=== PATIENT | male | born 1950 | race Hispanic/Latino ===

== ENCOUNTER 2021-02-22 08:10 | Emergency (ER) | payer OTHER ==
[2021-02-22 08:34] LABS: Absolute Lymphocytes (CBC) 2.7 K/uL (0.7-4.9); Basophils % 0.6 % (0-1.3); Hematocrit 41.8 % (39.6-49.0); Lymphocytes % 30.1 % (15.3-44.8); MPV 9.4 fL (7.6-11.3); RBC Red Blood Cell Count 4.62 M/uL (4.33-5.43)
[2021-02-22] MEDS ORDERED: NA CHLORIDE 0.9% 1,000 ML ONE (08:35)
[2021-02-22] MEDS ORDERED: MECLIZINE HCL 12.5 MG TAB ONE (08:35)
[2021-02-22 08:39] LABS: Protime INR 0.97
--- NOTE | 2021-02-22 09:01 | RAD REPORT ---
EXAM DESCRIPTION: MRI - Brain Wo Cont - 02/22/2021 8:52 am CLINICAL HISTORY: Vertigo COMPARISON: Head CT February 22, 2021 TECHNIQUE: Axial, sagittal, and coronal magnetic resonance images of the brain were obtained. FINDINGS: Mild signal within periventricular, deep and subcortical white matter probably ischemic ch anges secondary to small vessel disease Diffusion-weighted/ADC mapping does not reveal evidence of acute infarction. The ventricles are normal caliber. An extra-axial fluid collection is not noted. Fluid within the sinuses/mastoids is not seen IMPRESSION: No acute intracranial abnormality noted
--- NOTE | 2021-02-22 09:02 | RAD REPORT ---
EXAM DESCRIPTION: CT - Head Brain Wo Cont - 02/22/2021 8:32 am CLINICAL HISTORY: Dizziness COMPARISON: None TECHNIQUE: Computed axial tomography of the head was obtained. IV contrast was not requested. All CT scans are performed using dose optimization technique as appropriate and may include automated exposure control or mA/KV adjustment according to patient size. FINDINGS: An intracranial bleed is not seen . The ventricles are normal in caliber. No extra-axial fluid collection is noted. Fluid within the sinuses/ mastoids is not seen. IMPRESSION: No acute intracranial abnormality is seen.
[2021-02-22] MEDS ORDERED: ONDANSETRON 4 MG/2 ML VIAL ONE (10:13)
[2021-02-22 11:00] LABS: BUN Blood Urea Nitrogen 22 mg/dL (7-18); Bicarbonate 21 mmol/L (21-32); Glucose Level 198 mg/dL (74-106); Sodium Level 137 mmol/L (136-145); Troponin (Emerg Dept Use Only) < 0.02 ng/mL (0.0-0.045)
--- NOTE | 2021-02-22 11:20 | ER ---
Nurse's Notes [facility] Name: Torsten Cochran Age: 70 yrs Sex: Male : 1950 Arrival Date: 02/22/2021 Time: 08:15 Bed 13 Private MD: Diagnosis: Other peripheral vertigo;Dizziness and giddiness Presentation: 02/22 08:18 Chief complaint: EMS states: "pt reported waking up this am feeling dizzy and nauseous jd3 with reporting the room is spinning. 4 mg of zofran given and 20 G IV started to the right forearm. normal sinus on the 12 lead. pt reported symptoms were resolving by the time we arrived to the ER.". Coronavirus screen: At this time, the client does not indicate any symptoms associated with coronavirus-19. Ebola Screen: Patient negative for fever greater than or equal to 101.5 degrees Fahrenheit, and additional compatible Ebola Virus Disease symptoms. Initial Sepsis Screen: Does the patient meet any 2 criteria? No. Patient's initial sepsis screen is negative. Does the patient have a suspected source of infection? No. Patient's initial sepsis screen is negative. Risk Assessment: Do you want to hurt yourself or someone else? Patient reports no desire to harm self or others. Onset of symptoms was February 22, 2021. 08:18 Method Of Arrival: EMS: [facility] jd3 08:18 Acuity: JOSHUA 3 jd3 Historical: - Allergies: 08:23 Codeine; jd3 - Home Meds: 08:23 Aspirin Oral [Active]; escitalopram oxalate oral [Active]; Metformin Oral [Active]; jd3 amlodipine oral [Active]; Hydrochlorothiazide Oral [Active]; doxazosin oral [Active]; losartan oral [Active]; pioglitazone oral [Active]; atorvastatin oral [Active]; - PMHx: 08:23 Diabetes mellitus; Hypertensive disorder; high cholesteral; jd3 - PSHx: 08:23 heart stents; jd3 - Immunization history:: Adult Immunizations up to date, Client reports receiving the 2nd dose of the Covid vaccine, Flu vaccine is not up to date. - Social history:: Smoking status: Patient/guardian denies using tobacco, but has a distant history of tobacco abuse. - Family history:: not pertinent. - Hospitalizations: : No recent hospitalization is reported. Screenin:05 Abuse screen: Denies threats or abuse. Nutritional screening: No deficits noted. jd3 Tuberculosis screening: No symptoms or risk factors identified. Fall Risk Ambulatory Aid- None/Bed Rest/Nurse Assist (0 pts). Gait- Normal/Bed Rest/Wheelchair (0 pts) Mental Status- Oriented to own ability (0 pts). Total Price Fall Scale indicates No Risk (0-24 pts). Assessment: 08:30 General: Appears in no apparent distress. comfortable, Behavior is calm, cooperative, jd3 appropriate for age. Pain: Denies pain. Neuro: Level of Consciousness is awake, alert, obeys commands, Oriented to person, place, time, situation, Reports dizziness. Cardiovascular: Denies chest pain, Capillary refill < 3 seconds Patient's skin is warm and dry. Rhythm is regular. Respiratory: Airway is patent Respiratory effort is even, unlabored, Respiratory pattern is regular, symmetrical, Denies cough, shortness of breath. GI: No signs and/or symptoms were reported involving the gastrointestinal system. : No signs and/or symptoms were reported regarding the genitourinary system. EENT: No signs and/or symptoms were reported regarding the EENT system. Derm: Skin is intact, Skin is dry, Skin is normal, Skin temperature is warm. Musculoskeletal: No signs and/or symptoms reported regarding the musculoskeletal system. 09:34 Reassessment: Patient appears in no apparent distress at this time. No changes from jd3 previously documented assessment. Patient and/or family updated on plan of care and expected duration. Pain level reassessed. Patient is alert, oriented x 3, equal unlabored respirations, skin warm/dry/pink. 11:07 Reassessment: Patient appears in no apparent distress at this time. No changes from jd3 previously documented assessment. Patient and/or family updated on plan of care and expected duration. Pain level reassessed. Patient is alert, oriented x 3, equal unlabored respirations, skin warm/dry/pink. Vital Signs: 08:27 BP 154 / 78; Pulse 78; Resp 20 S; Temp 98.6(TE); Pulse Ox 100% on R/A; Weight 121.56 kg jd3 (R); Height 6 ft. 1 in. (185.42 cm) (R); Pain 0/10; 09:34 BP 158 / 67; Pulse 55; Resp 17 S; Pulse Ox 98% on R/A; jd3 11:07 BP 180 / 79; Pulse 59; Resp 17 S; Pulse Ox 99% on R/A; jd3 08:27 Body Mass Index 35.36 (121.56 kg, 185.42 cm) jd3 ED Course: 08:15 Patient arrived in ED. [facility] 08:18 Tesfaye Bunch MD is Attending Physician. rn 08:18 Erickson Dey RN is Primary Nurse. jd3 08:23 Triage completed. jd3 08:27 Arm band placed on. EKG completed in triage. Results shown to MD. jd3 08:29 CBC with Diff Sent. 5 08:29 Protime (+inr) Sent. 5 08:29 Ptt, Activated Sent. 5 08:29 Troponin (emerg Dept Use Only) Sent. 5 08:29 Basic Metabolic Panel Sent. 5 08:29 Initial lab(s) drawn, by ED staff, sent to lab. EKG done, by ED staff, reviewed by [facility] Tesfaye Bunch MD. Maintain EMS IV. Dressing intact. Site clean \\T\\ dry. 08:30 Patient has correct armband on for positive identification. Bed in low position. Call [facility] light in reach. Side rails up X2. Warm blanket given. secured entrance monitor on. Pulse ox on. NIBP on. 08:31 CT Head Brain wo Cont In Process Unspecified. EDMS 08:39 Brain Wo Cont MRI In Process Unspecified. EDMS 11:19 Johnathan Hernandez MD is Referral Physician. rn 12:32 No provider procedures requiring assistance completed. IV discontinued, intact, jd3 bleeding controlled, No redness/swelling at site. Pressure dressing applied. Administered Medications: 09:02 Drug: NS 0.9% 1000 ml Route: IV; Rate: 1000 ml; Site: right forearm; jd3 10:00 Follow up: Response: No adverse reaction; IV Status: Completed infusion jd3 09:03 Drug: Meclizine 50 mg Route: PO; jd3 12:32 Follow up: Response: No adverse reaction jd3 10:18 Drug: Zofran (Ondansetron) 4 mg Route: IVP; Site: right forearm; jd3 11:00 Follow up: Response: No adverse reaction jd3 11:49 Drug: Valium (diazepam) 2 mg Route: PO; jd3 12:32 Follow up: Response: No adverse reaction jd3 Outcome: 11:19 Discharge ordered by . rn 12:29 Patient left the ED. 12:33 Discharged to home via wheelchair, with family. jd3 12:33 Condition: stable 12:33 Discharge instructions given to patient, family, Instructed on discharge instructions, follow up and referral plans. medication usage, Demonstrated understanding of instructions, follow-up care, medications, Prescriptions given X 2. Signatures: Dispatcher [employer] EDTesfaye Morales MD MD rn Smirch, Shelby, RN RN ss Martinez, Maria [facility] Erickson Dey RN RN jelise
--- NOTE | 2021-02-22 11:20 | EDPHYS ---
Physician Documentation [facility] Name: Torsten Cochran Age: 70 yrs Sex: Male : 1950 Arrival Date: 02/22/2021 Time: 08:15 Bed 13 Private MD: ED Physician Tesfaye Bunch HPI: 02/22 08:23 This 70 yrs old Male presents to ER via Unassigned with complaints of rn dizziness. 08:23 The patient presents with dizziness, sense of spinning. Onset: The symptoms/episode rn began/occurred this morning. Modifying factors: The symptoms are alleviated by nothing, the symptoms are aggravated by movement of head. Associated signs and symptoms: Pertinent positives: nausea, vomiting, Pertinent negatives: abdominal pain, chest pain, confusion, diaphoresis, focal weakness, head injury, headache, seizure, shortness of breath. Severity of symptoms: At their worst the symptoms were moderate in the emergency department the symptoms have improved. The patient has experienced similar episodes in the past. The patient has not recently seen a physician. Patient reports woke up this morning feeling dizzy, feeling like room was spinning, associated with nausea and vomiting. Reports try to get out of bed and felt like he could not walk. EMS reports high blood pressure that has now improved without intervention. Was given Zofran 4 mg IV by EMS with improvement of symptoms. Patient currently reports does not feel dizzy. States felt fine when went to bed last night. States has been feeling dizzy spells over the last week and 2 days ago felt similar to today but today was worse. No history of vertigo or stroke. No headache. No vision changes. No chest pain or abdominal pain.. Historical: - Allergies: 08:23 Codeine; jd3 - Home Meds: 08:23 Aspirin Oral [Active]; escitalopram oxalate oral [Active]; Metformin Oral [Active]; jd3 amlodipine oral [Active]; Hydrochlorothiazide Oral [Active]; doxazosin oral [Active]; losartan oral [Active]; pioglitazone oral [Active]; atorvastatin oral [Active]; - PMHx: 08:23 Diabetes mellitus; Hypertensive disorder; high cholesteral; jd3 - PSHx: 08: heart stents; jd3 - Immunization history:: Adult Immunizations up to date, Client reports receiving the 2nd dose of the Covid vaccine, Flu vaccine is not up to date. - Social history:: Smoking status: Patient/guardian denies using tobacco, but has a distant history of tobacco abuse. - Family history:: not pertinent. - Hospitalizations: : No recent hospitalization is reported. ROS: 08:23 Constitutional: Negative for fever, chills, and weight loss, Eyes: Negative for injury, rn pain, redness, and discharge, ENT: Negative for injury, pain, and discharge, Neck: Negative for injury, pain, and swelling, Cardiovascular: Negative for chest pain, palpitations, and edema, Respiratory: Negative for shortness of breath, cough, wheezing, and pleuritic chest pain, Abdomen/GI: Negative for abdominal pain, diarrhea, and constipation, Back: Negative for injury and pain, : Negative for injury, bleeding, discharge, and swelling, MS/Extremity: Negative for injury and deformity, Skin: Negative for injury, rash, and discoloration, Neuro: Negative for headache, weakness, numbness, tingling, and seizure. Exam: 08:23 Constitutional: This is a well developed, well nourished patient who is awake, alert, rn and in no acute distress. Head/Face: Normocephalic, atraumatic. Eyes: Periorbital areas with no swelling, redness, or edema. Neck: Trachea midline, no masses palpated. No Meningismus. Cardiovascular: Regular rate and rhythm. No pulse deficits. Respiratory: No increased work of breathing, no retractions or nasal flaring. Abdomen/GI: Soft, non-tender Skin: Warm, dry MS/ Extremity: Pulses equal, no cyanosis. Neuro: Awake and alert, GCS 15, oriented to person, place, time, and situation. Cranial nerves II-XII grossly intact. Motor strength 5/5 in all extremities. Sensory grossly intact. Cerebellar exam normal. Vital Signs: 08:27 BP 154 / 78; Pulse 78; Resp 20 S; Temp 98.6(TE); Pulse Ox 100% on R/A; Weight 121.56 kg jd3 (R); Height 6 ft. 1 in. (185.42 cm) (R); Pain 0/10; 09:34 BP 158 / 67; Pulse 55; Resp 17 S; Pulse Ox 98% on R/A; jd3 11:07 BP 180 / 79; Pulse 59; Resp 17 S; Pulse Ox 99% on R/A; jd3 08:27 Body Mass Index 35.36 (121.56 kg, 185.42 cm) jd3 MDM: 08:18 Patient medically screened. rn 11:17 Differential diagnosis: cardiac arrhythmia, CVA, generalized weakness, hypovolemia, rn idiopathic dizziness, near-syncope, TIA, vertigo. Data reviewed: vital signs, nurses notes, lab test result(s), EKG, radiologic studies, CT scan, MRI, and as a result, I will discharge patient. Counseling: I had a detailed discussion with the patient and/or guardian regarding: the historical points, exam findings, and any diagnostic results supporting the discharge/admit diagnosis, lab results, radiology results, the need for outpatient follow up, to return to the emergency department if symptoms worsen or persist or if there are any questions or concerns that arise at home. Response to treatment: the patient's symptoms have mildly improved after treatment, and as a result, I will discharge patient. Special discussion: I discussed with the patient/guardian in detail that at this point there is no indication for admission to the hospital. It is understood, however, that if the symptoms persist or worsen the patient needs to return immediately for re-evaluation. Based on the history and exam findings, there is no indication for further emergent testing or inpatient evaluation. I discussed with the patient/guardian the need to see the neurologist for further evaluation of the symptoms. ED course: Patient improved. CT head negative for acute findings. MRI head negative for acute stroke. Patient had 1 other episode of dizziness here, did not correspond to arrhythmia on monitor or hypotensive episode. Most likely given absence of findings and imaging and blood work, patient with vertigo. Will DC home with meclizine and neurology follow-up.. 02/22 08:19 Order name: Basic Metabolic Panel; Complete Time: 11:02 rn 02/22 08:19 Order name: CBC with Diff; Complete Time: : rn 02/22 08:19 Order name: Protime (+inr); Complete Time: 09: rn 02/22 08:19 Order name: Ptt, Activated; Complete Time: 09: rn 02/22 08:19 Order name: Troponin (emerg Dept Use Only); Complete Time: 11:02 rn 02/22 08:19 Order name: CT Head Brain wo Cont; Complete Time: 09:03 rn 02/22 08:19 Order name: EKG; Complete Time: 08: rn 02/22 08:19 Order name: Cardiac monitoring; Complete Time: rn 02/22 08:19 Order name: EKG - Nurse/Tech; Complete Time: 08: rn 02/22 08:19 Order name: Brain Wo Cont MRI; Complete Time: 09: rn 02/22 08:19 Order name: IV Saline Lock; Complete Time: rn 02/22 08:19 Order name: Labs collected and sent; Complete Time: : rn 02/22 08:19 Order name: O2 Per Protocol; Complete Time: : rn 02/22 08:19 Order name: O2 Sat Monitoring; Complete Time: rn Administered Medications: 09:02 Drug: NS 0.9% 1000 ml Route: IV; Rate: 1000 ml; Site: right forearm; jd3 10:00 Follow up: Response: No adverse reaction; IV Status: Completed infusion jd3 09:03 Drug: Meclizine 50 mg Route: PO; jd3 12:32 Follow up: Response: No adverse reaction jd3 10:18 Drug: Zofran (Ondansetron) 4 mg Route: IVP; Site: right forearm; jd3 11:00 Follow up: Response: No adverse reaction jd3 11:49 Drug: Valium (diazepam) 2 mg Route: PO; jd3 12:32 Follow up: Response: No adverse reaction jd3 Disposition Summary: 02/22/21 11:19 Discharge Ordered Location: Home rn Problem: new rn Symptoms: have improved rn Condition: Stable rn Diagnosis - Other peripheral vertigo rn - Dizziness and giddiness rn Followup: rn - With: Jhonathan Hernandez MD - When: As needed - Reason: Recheck today's complaints, Re-evaluation by your physician Discharge Instructions: - Discharge Summary Sheet rn - Dizziness rn - Vertigo rn Forms: - Medication Reconciliation Form rn - Thank You Letter rn - Antibiotic field kiln burner - Prescription Opioid Use rn Prescriptions: - ondansetron 4 mg Oral tablet,disintegrating - take 1 tablet by ORAL route every 8-10 hours As needed; 15 tablet; Refills: 0, rn Product Selection Permitted - Meclizine 25 mg Oral Tablet - take 1 tablet by ORAL route every 8 hours As needed; 30 tablet; Refills: 0, rn Product Selection Permitted Signatures: Dispatcher [employer] Tesfaye Harris MD MD rn Erickson Dey RN RN jd3
[2021-02-22] MEDS ORDERED: DIAZEPAM 2 MG TABLET PO ONE (12:00)
[2021-02-22 12:40] VITALS: TEMP 98.6
[2021-02-22 12:43] VITALS: BP 180/79; O2SAT 99
--- NOTE | 2021-02-23 12:29 | EKG ---
Test Date: 2021-02-22 Test Time: 08:25:22 [employer] Wood Stair Builder: MADINA MEASUREMENT RESULTS: Intervals: Rate: 63 UT: 156 QRSD: 90 QT: 424 QTc: 433 [place]: P: 21 UT: 156 QRS: 3 T: 51 INTERPRETIVE STATEMENTS: Sinus rhythm with occasional premature ventricular complexes Otherwise normal ECG No previous ECG available for comparison Electronically Signed On 02-23-21 12:25:57 [employer]ALITY ASS[employer]ANCE ASSOCIATE by Panda Strong
== END 2021-02-22 12:29 | disposition home or self-care (01) ==
LOC: ER 08:10
DX: H81.399 Other peripheral vertigo, unspecified ear (principal); I10 Essential (primary) hypertension; E11.9 Type 2 diabetes mellitus without complications; Z95.818 Presence of other cardiac implants and grafts; Z79.82 Long term (current) use of aspirin; Z88.5 Allergy status to narcotic agent
CPT/HCPCS: 96361; 93005; 85025; 80048; 36415; 85610; 85730; 84484; 70450; 70551; 96374; 99284; J7030; J2405; J8597

== ENCOUNTER 2021-04-01 04:29 | Emergency (ER) | payer OTHER ==
--- OUTSIDE RECORDS SUMMARY | 2021-04-01 04:34 | XMS REPORT | Continuity of Care Document ---
:1950 Author Organization [facility] t Address [address] [place] [address] Care Team Providers Name Role Phone Domi Rios DO Primary Care Physician Jose GUERRIER Attending Clinician Payers Payer Name Policy Type Policy Number Effective Date Expiration Date S ource Problems Condition Condition Condition Status Onset Resolution Last Treating Co mments Source Name Details Category Date Date Treatment Clinician Date Redundant Redundant Disease Active 2020-03 Overview: [facility] prepuce prepuce 2-20 Formattin ity o f and and 00:00: g of this [place] phimosis phimosis 00 note Medica l might be Branch different from the original. Added automatic ally from request for surgery [id number] [place] Bal[place] Disease Active 2020-03 Overview : [facility] hitis hitis 2-20 Formattin ity of 00:00: g of this [place] 00 note Medical might be Branch different from the original. Added automatic ally from request for surgery [id number] Allergies, Adverse Reactions, Alerts Allergy Allergy Status Severity Reaction(s) Onset Inactive Treating Comm ents Source Name Type Date Date Clinician Codeine Propensi Active Nausea Univers ty to and/or 1-04 ity of adverse Vomiting 00:00: [place] reaction 00 Medical s Branch Social History Social Habit Start Date Stop Date Quantity Comments Source Exposure to Not sure [facility] SARS-CoV-2 (event) Medica l Branch Sex Assigned [birth year] [facility] 00:00:00 00:00:00 Medical Branch Smoking Status Start Date Stop Date Source Unknown if ever smoked [facility] Medical [place] Medications Ordered Filled Start Stop Current Ordering Indication Dosage Frequency Signature Comments Components Source Medication Medication Date Date Medication? Clinician (SIG) Name Name atorharrisontati 2020-03 Yes 20mg Take 20 mg Univers n 20 mg -29 by mouth. ity of tablet 00:00: [place] 00 Medical Branch atorvastati 2020-03 Yes 20mg Take 20 mg Univers n 20 mg 29 by mouth. ity of tablet 00:00: [place] 00 Medical Branch escitalopra 2020-03- Yes 10mg Take 10 mg Univers m oxalate 03-31 by mouth. ity of 10 mg 00:00: 05:59 [place] tablet 00 :00 Medical Branch escitalopra 2020-03- Yes 10mg Take 10 mg Univers m oxalate 03-31 by mouth. ity of 10 mg 00:00: 05:59 [place] tablet 00 :00 Medical Branch amLODIPine 2020-03 Yes 1{tbl} Take 1 Uni vers 10 mg 1-06 tablet by ity of tablet 00:00: mouth [place] 00 daily. Medical Branch hydroCHLORO 2020-03 Yes 1{tbl} Take 1 Un charline thiazide 25 1-06 tablet by ity of mg tablet 00:00: mouth [place] 00 daily. Medical Branch metFORMIN 2020-03 Yes 1{tbl} Take 1 Univ ers 1,000 mg 1-06 tablet by ity of tablet 00:00: mouth 2 (two) Medical times Branch daily with meals. amLODIPine 2020-03 Yes 1{tbl} Take 1 Uni vers 10 mg 1-06 tablet by ity of tablet 00:00: mouth [place] 00 daily. Medical Branch hydroCHLORO 2020-03 Yes 1{tbl} Take 1 Un charline thiazide 25 1-06 tablet by ity of mg tablet 00:00: mouth [place] 00 daily. Medical Branch metFORMIN 2020-03 Yes 1{tbl} Take 1 Univ ers 1,000 mg 1-06 tablet by ity of tablet 00:00: mouth 2 00 (two) Medical times Branch daily with meals. doxazosin 4 2021- No 4mg Take 4 mg Univers mg tablet 07-17 by mouth. ity of 00:00: 04:59 [place] 00 :00 Medical Branch doxazosin 4 2021- No 4mg Take 4 mg Univers mg tablet 07-17 by mouth. ity of 00:00: 04:59 [place] 00 :00 Medical Branch lactulose Yes 30mL Take 30 mL Un charline 10 gram/15 06-12 by mouth. ity of mL solution 00:00: 00 Medical Branch lactulose Yes 30mL Take 30 mL Un charline 10 gram/15 06-12 by mouth. ity of mL solution 00:00: 00 Medical Branch losartan 50 2020-2021- No 50mg Take 50 mg Univers mg tablet 06-12 by mouth. ity of 00:00: 04:59 [place] 00 :00 [facility] Branch metoprolol 2021- No 25mg Take 25 mg Univers succinate 06-12 by mouth. ity of XL 25 mg 24 00:00: 04:59 [place] hr tablet 00 :00 [facility] Branch losartan 50 2021- No 50mg Take 50 mg Univers mg tablet 06-12 by mouth. ity of 00:00: 04:59 [place] 00 :00 [facility] Branch metoprolol 2021- No 25mg Take 25 mg Univers succinate 06-12 by mouth. ity of XL 25 mg 24 00:00: 04:59 [place] hr tablet 00 :00 [facility] Procedures This patient has no known procedures. Encounters Start End Encounter Admission Attending Care Care Encounter Source Date/Time Date/Time Type Type Clinicians Facility Department ID 2021-03-19 2021-03-19 Telephone Jose [facility] [id number] Univers 00:00:00 00:00:00 [facility] [id number] it y of [place] [id number] [place] - [id number] Med ical [facility] 204 Branch 2021-03-17 2021-03-17 Telephone Jose [facility] [id number] Univers 00:00:00 00:00:00 [facility] [id number] i [place] of [id number] [place] [id number] [place] [facility] 204 Branch BUILDING Results This patient has no known results.
[2021-04-01] MEDS ORDERED: LORazepam 2 MG/ML VIAL ONE (05:38)
[2021-04-01 05:53] LABS: Absolute Lymphocytes (CBC) 1.8 K/uL (0.7-4.9); Hematocrit 42.1 % (39.6-49.0); Lymphocytes % 26.3 % (15.3-44.8); MPV 10.1 fL (7.6-11.3); RBC Red Blood Cell Count 4.66 M/uL (4.33-5.43)
[2021-04-01 06:09] LABS: Potassium 4.1 mmol/L (3.5-5.1); Troponin High Sensitivity 11.6 pg/mL (<58.9)
--- NOTE | 2021-04-01 07:24 | RAD REPORT ---
EXAM DESCRIPTION: CT - Chest For Pe Angio - 04/01/2021 6:55 am CLINICAL HISTORY: DYSPNEA COMPARISON: No comparisons FINDINGS: Chest Wall: No suspicious thyroid nodules or pathologic lymphadenopathy. Lungs: No acute abnormality. Limited by motion. Pleura: No significant effusions or pneumothorax. Mediastinum/nicol: No pathologic lymphadenopathy. Pulmonary arteries/Aorta: No filling defect identified though limited by motion. The segmental and gonsales bsegmental pulmonary arteries are not well evaluated. No aortic aneurysm. Heart: No significant pericardial effusion. Normal heart size. Aortic valve calcifications. Multi-ves mallika coronary artery disease. Upper abdomen: No acute abnormality. Bones: No acute abnormality. All CT scans are performed using dose optimization technique as appropriate and may include automated exposure control or mA/KV adjustment according to patient size. IMPRESSION: Evaluation for pulmonary embolism is limited by motion. No central pulmonary embolus liyah ntified. The segmental and subsegmental pulmonary arteries cannot be evaluated. No alternate process identified. Aortic valvular and coronary artery calcifications are present.
--- NOTE | 2021-04-01 07:44 | RAD REPORT ---
EXAM DESCRIPTION: RAD - Chest Single View - 04/01/2021 5:46 am CLINICAL HISTORY: DYSPNEA COMPARISON: Chest For Pe Angio dated 04/01/2021 FINDINGS: Lines: None. Lungs: No evidence of edema or pneumonia. Pleural: No significant pleural effusions or pneumothorax. Cardiac: The heart size is within normal limits. Bones: No acute fractures. Other: IMPRESSION: No acute cardiopulmonary disease.
--- NOTE | 2021-04-01 10:15 | ER ---
Nurse's Notes [facility] Name: Torsten Cochran Age: 70 yrs Sex: Male : 1950 Arrival Date: 04/01/2021 Time: 04:41 Bed 17 Private MD: Diagnosis: Dyspnea Presentation: 04/01 04:57 Chief complaint: Patient states: he was sleeping tonight and states he stopped as6 breathing in his sleep, woke up and was having difficulty catching his breath and felt like he was going to vomit. Pt tried to go back to sleep but this kept happening. pt has hx of anxiety and sleep apnea, cpap machine was recalled so does not wear cpap at night. covid positive on 03/16/21. Coronavirus screen: Vaccine status: Patient reports receiving the 2nd dose of the covid vaccine. Ebola Screen: No symptoms or risks identified at this time. Initial Sepsis Screen: Does the patient meet any 2 criteria? No. Patient's initial sepsis screen is negative. Does the patient have a suspected source of infection? No. Patient's initial sepsis screen is negative. Risk Assessment: Do you want to hurt yourself or someone else? Patient reports no desire to harm self or others. Onset of symptoms was April 01, 2021. 04:57 Method Of Arrival: Ambulatory as6 04:57 Acuity: JOSHUA 3 as6 Triage Assessment: 05:00 General: Appears in no apparent distress. Behavior is anxious. Pain: Denies pain. as6 Neuro: No deficits noted. Level of Consciousness is awake, alert, Oriented to person, place, time, situation. Cardiovascular: No deficits noted. Capillary refill < 3 seconds Patient's skin is warm and dry. Respiratory: Reports shortness of breath Airway is patent Trachea midline Respiratory effort is even, labored, Onset: The symptoms/episode began/occurred this morning, the patient has mild shortness of breath. Historical: - Allergies: 04:59 Codeine; as6 - Home Meds: 06:01 amlodipine oral [Active]; Aspirin Oral [Active]; atorvastatin Oral [Active]; doxazosin carloz Oral [Active]; escitalopram oxalate Oral [Active]; Hydrochlorothiazide Oral [Active]; losartan Oral [Active]; Metformin Oral [Active]; pioglitazone Oral [Active]; - PMHx: 04:59 diabetes mellitus; high cholesteral; Hypertensive disorder; Sleep apnea; Anxiety; as6 - PSHx: 04:59 Heart Stents; as6 - Immunization history:: Client reports receiving the 2nd dose of the Covid vaccine. - Social history:: Smoking status: unknown. - Family history:: not pertinent. - Hospitalizations: : No recent hospitalization is reported. Screenin:15 Abuse screen: Denies threats or abuse. Denies injuries from another. Nutritional carloz screening: No deficits noted. Tuberculosis screening: No symptoms or risk factors identified. Fall Risk None identified. Assessment: 05:15 Reassessment: Patient appears in no apparent distress at this time. Patient denies pain carloz at this time. General: Appears in no apparent distress. Behavior is calm, cooperative, Pt reports have "anxiety attacks", but currently, is very calm. . Cardiovascular: No deficits noted. Respiratory: No deficits noted. Breath sounds are clear. 05:42 Cardiovascular: Rhythm is. carloz 06:02 General: The lab called to say that the pt's Ddimer was 931. carloz 06:48 General: The pt just returned from [place]. carloz 08:57 Reassessment: Pt is aaox4, reports improved breathing, able to ambulate to restroom eo2 with steady gait. Pt denies pain, appears in NAD. Will continue to monitor. 10:17 Reassessment: pt noted with pulse 45 bpm while sleeping, pt denies CP, appears in NAD, eo2 Rey CHAU made aware. Vital Signs: 04:57 BP 181 / 66; Pulse 72; Resp 22; Temp 98.0(O); Pulse Ox 100% on R/A; Weight 122.47 kg; as6 Height 6 ft. (182.88 cm); 05:15 BP 162 / 82; Pulse 71; Resp 18; Temp 98.5; Pulse Ox 100% on R/A; carloz 06:00 BP 150 / 68; Pulse 78; Resp 16; Pulse Ox 99% on R/A; carloz 08:56 BP 139 / 62; Pulse 59; Resp 15; Pulse Ox 98% ; Pain 0/10; eo2 09:30 BP 161 / 65; Pulse 56; Resp 17; Pulse Ox 100% ; Pain 0/10; eo2 10:26 BP 147 / 68; Pulse 54; Resp 17; Pulse Ox 100% ; Pain 0/10; eo2 04:57 Body Mass Index 36.62 (122.47 kg, 182.88 cm) as6 ED Course: 04:41 Patient arrived in ED. wm 04:59 Triage completed. as6 05:01 Tesfaye Bunch MD is Attending Physician. rn 05:01 Arm band placed on right wrist. as6 05:15 Jaimie Otero, RN is Primary Nurse. carloz 05:15 Patient has correct armband on for positive identification. Bed in low position. Call carloz light in reach. Side rails up X 1. Pulse ox on. NIBP on. Verbal reassurance given. 05:15 No provider procedures requiring assistance completed. carloz 05:30 CBC with Diff Sent. carloz 05:30 Basic Metabolic Panel Sent. carloz 05:30 BNP Sent. carloz 05:30 Troponin High Sensitivity Sent. carloz 05:30 D-Dimer Sent. carloz 05:47 XRAY CXR (1 view) In Process Unspecified. EDMS 05:59 Basic Metabolic Panel Sent. carloz 05:59 BNP Sent. carloz 06:00 Troponin High Sensitivity Sent. carloz 06:00 D-Dimer Sent. carloz 06:44 Appears to be sleeping. Awaiting CT Scan. carloz 06:55 CT Chest For PE Angio In Process Unspecified. EDMS 07:09 Rey Pineda PA is PHCP. [facility] 09:41 Troponin HS Sent. eo2 10:30 IV discontinued, intact. eo2 Administered Medications: 05:42 Drug: Ativan (LORazepam) 0.5 mg Route: IVP; Site: right forearm; carloz 05:59 Follow up: Response: Anxiety decreased carloz Outcome: 06:00 Condition: stable carloz 10:14 Discharge ordered by . jmaustin 10:30 Discharged to home ambulatory. eo2 10:30 Condition: stable 10:30 Discharge instructions given to patient, Instructed on discharge instructions, follow up and referral plans. Demonstrated understanding of instructions, follow-up care. 10:44 Patient left the ED. eo2 Signatures: Dispatcher [employer] EDMS Rey Pineda PA PA jmm Nieto, Roman, MD MD rn Marsh, Wendy Torres Langley RN RN as6 Jaimie Otero RN RN bo Owoade, Eunice, RN RN eo2
--- NOTE | 2021-04-01 10:15 | EDPHYS ---
Physician Documentation [facility] Name: Torsten Cochran Age: 70 yrs Sex: Male : 1950 Arrival Date: 04/01/2021 Time: 04:41 Bed 17 Private MD: ED Physician Tesfaye Bunch HPI: 04/01 05:31 This 70 yrs old Male presents to ER via Ambulatory with complaints of rn Shortness Of Breath, Anxiety. 05:31 The patient has shortness of breath that woke him/her from sleep. Onset: The rn symptoms/episode began/occurred just prior to arrival. Duration: The symptoms are continuous. The patient's shortness of breath is aggravated by nothing, is alleviated by nothing. Associated signs and symptoms: Pertinent negatives: chest pain, diaphoresis, fever, hemoptysis, loss of consciousness, vomiting. Severity of symptoms: At their worst the symptoms were moderate in the emergency department the symptoms have improved. The patient has experienced similar episodes in the past. The patient has not recently seen a physician. Patient reports woke up from sleep suddenly and felt like he could not breathe. Feels very similar to previous anxiety episodes. Patient also with sleep apnea and has not been using his CPAP machine due to recall. Reports had COVID 2 weeks ago but felt like got better and cough improved. No trauma. No hemoptysis. No chest pain or abdominal pain. No focal neurological deficit. Patient states at first it was really bad and took him about an hour to calm down and try to control his anxiety, has not gone completely away but much better.. Historical: - Allergies: 04:59 Codeine; as6 - Home Meds: 06:01 amlodipine oral [Active]; Aspirin Oral [Active]; atorvastatin Oral [Active]; doxazosin carloz Oral [Active]; escitalopram oxalate Oral [Active]; Hydrochlorothiazide Oral [Active]; losartan Oral [Active]; Metformin Oral [Active]; pioglitazone Oral [Active]; - PMHx: 04:59 diabetes mellitus; high cholesteral; Hypertensive disorder; Sleep apnea; Anxiety; as6 - PSHx: 04:59 Heart Stents; as6 - Immunization history:: Client reports receiving the 2nd dose of the Covid vaccine. - Social history:: Smoking status: unknown. - Family history:: not pertinent. - Hospitalizations: : No recent hospitalization is reported. ROS: 05:31 Constitutional: Negative for fever, chills, and weight loss, Eyes: Negative for injury, rn pain, redness, and discharge, ENT: Negative for injury, pain, and discharge, Neck: Negative for injury, pain, and swelling, Cardiovascular: Negative for chest pain, palpitations, and edema, Respiratory: Negative for wheezing, and pleuritic chest pain, Abdomen/GI: Negative for abdominal pain, nausea, vomiting, diarrhea, and constipation, Back: Negative for injury and pain, : Negative for injury, bleeding, discharge, and swelling, MS/Extremity: Negative for injury and deformity, Skin: Negative for injury, rash, and discoloration, Neuro: Negative for headache, weakness, numbness, tingling, and seizure. Exam: 05:31 Constitutional: This is a well developed, well nourished patient who is awake, alert, rn appears anxious and hyperventilating Head/Face: Normocephalic, atraumatic. Eyes: Periorbital areas with no swelling, redness, or edema. Cardiovascular: Regular rate, irregular rhythm. No pulse deficits. Respiratory: Hyperventilating but when speaking is able to speak full sentences. Takes deep breaths after finishing sentences. No retractions. No wheezing Abdomen/GI: Soft, non-tender Skin: Warm, dry MS/ Extremity: Pulses equal, no cyanosis. Neurovascular intact. Full, normal range of motion. Equal circumference. Neuro: Awake and alert, GCS 15, oriented to person, place, time, and situation. Cranial nerves II-XII grossly intact. Motor strength 5/5 in all extremities. Sensory grossly intact. Cerebellar exam normal. Vital Signs: 04:57 BP 181 / 66; Pulse 72; Resp 22; Temp 98.0(O); Pulse Ox 100% on R/A; Weight 122.47 kg; as6 Height 6 ft. (182.88 cm); 05:15 BP 162 / 82; Pulse 71; Resp 18; Temp 98.5; Pulse Ox 100% on R/A; carloz 06:00 BP 150 / 68; Pulse 78; Resp 16; Pulse Ox 99% on R/A; carloz 08:56 BP 139 / 62; Pulse 59; Resp 15; Pulse Ox 98% ; Pain 0/10; eo2 09:30 BP 161 / 65; Pulse 56; Resp 17; Pulse Ox 100% ; Pain 0/10; eo2 10:26 BP 147 / 68; Pulse 54; Resp 17; Pulse Ox 100% ; Pain 0/10; eo2 04:57 Body Mass Index 36.62 (122.47 kg, 182.88 cm) as6 MDM: 05:01 Patient medically screened. rn 07:09 ED course: Patient asymptomatic after 0.5 mg of Ativan. Stable vital signs. So far all data governance consultant tests negative other than elevated D-dimer for which I ordered a CT PE protocol. If CT PE protocol negative, will repeat troponin and plan to discharge home if everything normal.. 10:14 Data reviewed: vital signs, nurses notes. Counseling: I had a detailed discussion with connie the patient and/or guardian regarding: the historical points, exam findings, and any diagnostic results supporting the discharge/admit diagnosis, lab results, radiology results, the need for outpatient follow up, to return to the emergency department if symptoms worsen or persist or if there are any questions or concerns that arise at home. 04/01 05:15 Order name: CBC with Diff; Complete Time: 06:02 rn 04/01 05:15 Order name: Basic Metabolic Panel; Complete Time: 06:12 rn 04/01 05:15 Order name: Troponin High Sensitivity; Complete Time: 06:12 rn 04/01 05:15 Order name: BNP; Complete Time: 06:12 rn 04/01 05:16 Order name: D-Dimer; Complete Time: 06:12 rn 04/01 07:32 Order name: Troponin HS; Complete Time: 10:13 [facility] 04/01 05:15 Order name: IV Start; Complete Time: 05:30 rn 04/01 05:15 Order name: XRAY CXR (1 view); Complete Time: 08:07 rn 04/01 05:16 Order name: EKG; Complete Time: 05:16 rn 04/01 05:16 Order name: EKG - Nurse/Tech; Complete Time: 05:59 rn 04/01 06:12 Order name: CT Chest For PE Angio; Complete Time: 07:31 rn Administered Medications: 05:42 Drug: Ativan (LORazepam) 0.5 mg Route: IVP; Site: right forearm; carloz 05:59 Follow up: Response: Anxiety decreased carloz Disposition Summary: 04/01/21 10:14 Discharge Ordered Location: Home [facility] Condition: Stable jm Diagnosis - Dyspnea [facility] Followup: [facility] - With: Private Physician - When: 1 - 2 days - Reason: Recheck today's complaints, Continuance of care, Re-evaluation by your physician Discharge Instructions: - Discharge Summary Sheet jmm - Shortness of Breath, Adult jmm Forms: - Medication Reconciliation Form [facility] - Thank You Letter [facility] - Antibiotic Education [facility] - Prescription Opioid Use [facility] Addendum: 04/03/2021 06:57 Co-signature as Attending Physician, Tesfaye Bunch MD I agree with the assessment and r n plan of care. Signatures: Dispatcher [employer] EDRey Segovia PA PA jmm Nieto, Roman, MD MD rn Slawson, Ashby, RN RN as6 Jaimie Otero RN RN carloz
[2021-04-01 11:15] VITALS: TEMP 98.5
[2021-04-01 11:20] VITALS: O2SAT 100
[2021-04-01 11:22] VITALS: BP 147/68
== END 2021-04-01 10:44 | disposition home or self-care (01) ==
LOC: ER 04:29
DX: R06.00 Dyspnea, unspecified (principal); E11.9 Type 2 diabetes mellitus without complications; I10 Essential (primary) hypertension; Z79.82 Long term (current) use of aspirin; Z86.16 Personal history of COVID-19; Z88.5 Allergy status to narcotic agent; Z95.818 Presence of other cardiac implants and grafts
CPT/HCPCS: 93005; 85025; 80048; 36415; 85379; 84484 ×2; 83880; 71275; 71045; 96374; 99284; Q9967

== ENCOUNTER 2021-05-19 19:27 | Emergency (ER) | payer OTHER ==
--- OUTSIDE RECORDS SUMMARY | 2021-05-19 19:30 | XMS REPORT | Continuity of Care Document ---
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 Added automatic ally from request for surgery [id number] Heart Heart Disease Active Univers murmur murmur 7-02 ity of 00:00: [place] 00 Medical Branch Right Right Disease Active Univers upper upper 7-02 ity of quadrant quadrant 00:00: [place] pain pain 00 Medical Branch Slow Slow Disease Active Univers transit transit 2-21 ity of constipati constip[place] Benign Benign Disease Active Univers hypertensi hypertensi 11-05 it y of on with on with 00:00: [place] chronic chronic 00 Medical kidney kidney Branch disease disease Carotid Carotid Disease Active 2019 Univers bruit bruit 11-05 ity of 00:00: [place] 00 Medical Branch Chronic Chronic Disease Active 2019- Univers low back low back 11-05 ity of pain pain 00:00: [place] 00 Medical Branch Dysthymia Dysthymia Disease Active 2019 Uni vers 11-05 ity of 00:00: [place] Medical [facility] 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 11-05 it y of sterolemia sterolemia [place] Hyperkalem Hyperkalem Disease Active 2019- U nivers ia ia 11-05 ity of 00:00: [place] 00 Medical Branch Hypernatre Hypernatre Disease Active 2019 U nivers jennifer jennifer 11-05 ity of 00:00: [place] 00 Medical Branch 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 11-05 it y of itis itis 00:00: [place] 00 Medical Branch [place] Disease Active 2019 Univers light 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 00:00: [place] myeloma myeloma 00 Medical Branch Localized Localized Disease Active 2019 Uni vers edema edema 11-05 ity of 00:00: [place] 00 Medical Branch Nephrogeno Nephrogeno Disease Active 2019- U nivers us us 11-05 ity of proteinuri proteinuri [place] Obesity Obesity Disease Active 2019- Univers 11-05 ity of 00:00: [place] 00 Medical Branch Obstructiv Obstructiv Disease Active 2019- U nivers e sleep e sleep 11-05 ity of apnea apnea 00:00: [place] syndrome syndrome 00 Medica l Branch Pain in Pain in Disease Active 2019- Univers left knee left knee 11-05 ity of 00:00: [place] 00 Medical Branch 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 rs chronic chronic 11-05 ity of kidney kidney 00:00: [place] disease disease 00 Medical Branch 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-05 ity of mellitus mellitus 00:00: [place] with with 00 Medical diabetic diabetic Branch polyneurop polyneurop athy athy Allergies, Adverse Reactions, Alerts Allergy Allergy Status Severity Reaction(s) Onset Inactive Treating Comm ents Source Name Type Date Date Clinician Codeine Propensi Active Nausea Univers ty to and/or 1-04 ity of adverse Vomiting 00:00: [place] reaction 00 [facility] [place] CODEINE DRUG Active High N/V Univers INGREDI 1-04 ity of 00:00: [place] 00 [facility] Social History Social Habit Start Date Stop Date Quantity Comments Source Exposure to Not sure [facility] SARS-CoV-2 [facility] (event) Branch Alcohol intake 2021-05-03 2021-05-03 Ex-drinker [facility] 00:00:00 00:00:00 (finding) [facility] Tobacco use and 2021-04-30 2021-04-30 Never used Universit y of exposure 00:00:00 00:00:00 [facility] Sex Ass[birth year] At [birth year] Universit y of 00:00:00 00:00:00 [facility] Smoking Status Start Date Stop Date Source Unknown if ever smoked Universit y [facility] Former smoker 2021-04-30 00:00:00 2021-04-30 00:00:00 Universi ty [facility] Medications Ordered Filled Start Stop Current Ordering Indication Dosage Frequency Signature Comments Components Source Medication Medication Date Date Medication? Clinician (SIG) Name Name ondansetron Yes 4mg 4 mg, Slow Univers (ZOFRAN 2-18 IV Push, ity of (PF)) 16:03: Q4HPRN, 1 [place] injection 4 50 dose, Medical mg Starting Branch on Mon04/30/21 at 1003, Until Discontinu ed, Routine, Nausea and Vomiting (N/V), DSU Recovery ondansetron 4mg 4 mg, Slow Univers (ZOFRAN 2-18 02-18 IV Push, ity of (PF)) 16:03: 18:27 Q4HPRN, 1 [place] injection 4 50 :14 dose, Medical mg Starting Branch on Mon04/30/21 at 1003, Until 04/30/21 at 1227, Routine, Nausea and Vomiting (N/V), DSU Recovery ondansetron Yes 4mg 4 mg, Slow Univers (ZOFRAN 2-18 IV Push, ity of (PF)) 15:48: PRN, 1 [place] injection 4 50 dose, Medical mg Starting Branch on Mon04/30/21 at 0948, Until Discontinu ed, Routine, Nausea and Vomiting (N/V), PACU ondansetron 2021- No 4mg 4 mg, Slow Univers (ZOFRAN 04-30 IV Push, ity of (PF)) 15:48: 18:27 PRN, 1 injection 4 50 :14 dose, Medical mg Starting Branch on Mon04/30/21 at 0948, Until Mon04/30/21 at 1227, Routine, Nausea and Vomiting (N/V), PACU bacitracin- 0 2021- No PRN, Unive rs polymyxin B 04-30 Starting ity of (DOUBLE 15:22: 18:27 on Mon [place] ANTIBIOTIC) 00 :14 04/30/21 at Ut dical 500-10,000 0922, Branch unit/gram Until Mon topical 04/30/21 at ointment 1227, Routine, Intra-op sodium 0 Yes PRN, Univers chloride 04-30 Starting ity of 0.9 % 14:56: on Mon [place] irrigation 00 04/30/21 at [facility] ical solution 0856, Branch Until Discontinu ed, Intra-op sodium 2021-0 2021- No PRN, Univers chloride 04-30 Starting ity of 0.9 % 14:56: 18:27 on Mon [place] irrigation 00 :14 04/30/21 at [facility] ical solution 0856, Branch Until Mon04/30/21 at 1227, Intra-op lidocaine 2021-0 Yes PRN, Univers 1% (PF) 04-30 Starting ity of (XYLOCAINE) 14:55: [place] Fri [place] 00 04/30/21 at [facility] 0855, Branch Until Discontinu ed, Routine, Intra-op lidocaine 2021-0 2021- No PRN, Univers 1% (PF) 04-30 Starting ity of (XYLOCAINE) 14:55: 18:27 on Mon [place]aldo as injection 00 :14 04/30/21 at [facility] piyush 0855, Branch Until Mon04/30/21 at 1227, Routine, Intra-op bupivacaine 2022-0 Yes PRN, Univer s (preserv 2-18 Starting ity of free) 0.5% 14:54: on Fri [place] (SENSORCAIN 00 04/30/21 at [facility]) 0.5 0854, Branch % (5 mg/mL) Until injection Discontinu ed, Routine, Intra-op bupivacaine 2021- No PRN, Unive rs (preserv 04-3018 Starting ity of free) 0.5% 14:54: 18:27 [place] ([facility]CAIN [facility] 0854, Branch % (5 mg/mL) Until Fri injection 04/30/21 at 1227, Routine, Intra-op povidone-io 2021- No PRN, Unive rs dine 04-30 Starting ity of (BETADINE) 14:48: 18:27 on Fri [place] 10 % 00 :14 04/30/21 at Medical solution 0848, Branch Until 04/30/21 at 1227, Routine, Intra-op lactated 2021- No [facility] 02-18 mL/hr, ity of infusion 13:15: 13:14 1,000 mL, Reynaldo as 1,000 mL 00 :00 IV Medical Infusion, Branch ONCE, 1 dose, On Mon04/30/21 at 0715, Routine, DSU Pre-op lactated 2021- No 1000[facility] 04-30-18 mL/hr, ity of infusion 13:15: 13:14 1,000 mL, Reynaldo as 1,000 mL 00 :00 IV Medical Infusion, Branch ONCE, 1 dose, On Mon04/30/21 at 0715, Routine, DSU Pre-op atorvastati 2020-03 Yes 20mg Take 20 mg Univers n 20 mg 1-29 by mouth. ity of tablet 00:00: [address] atorvastati 2020-03 Yes 20mg Take 20 mg Univers n 20 mg 1-29 by mouth. ity of tablet 00:00: [place] [facility] atorvastati 2020-03 Yes 20mg Take 20 mg Univers n 20 mg 1-29 by mouth. ity of tablet 00:00: 00 Medical Branch atorvastati 2020-03 Yes 20mg Take 20 mg Univers n 20 mg 1-29 by mouth. ity of tablet 00:00: 00 Medical Branch atorvastati 2020-03 Yes 20mg Take 20 mg Univers n 20 mg 1-29 by mouth. ity of tablet 00:00: 00 Medical Branch atorvastati 2020-03 Yes 20mg Take 20 mg Univers n 20 mg 1-29 by mouth. ity of tablet 00:00: 00 Medical Branch escitalopra 2020-03- No 10mg Take 10 mg Univers m oxalate 03-31-20 by mouth. ity of 10 mg 00:00: 05:59 [place] tablet 00 :00 Medical Branch escitalopra 2020-03- No 10mg Take 10 mg Univers m oxalate 03-31-20 by mouth. ity of 10 mg 00:00: 05:59 [place] tablet 00 :00 Medical Branch escitalopra 2020-03- No 10mg Take 10 mg Univers m oxalate 03-31-20 by mouth. ity of 10 mg 00:00: 05:59 [place] tablet 00 :00 Medical Branch escitalopra 2020-03- No 10mg Take 10 mg Univers m oxalate 03-31-20 by mouth. ity of 10 mg 00:00: 05:59 [place] tablet 00 :00 Medical Branch escitalopra 2020-03- No 10mg Take 10 mg Univers m oxalate 03-31-20 by mouth. ity of 10 mg 00:00: 05:59 [place] tablet 00 :00 Medical Branch escitalopra 2020-03- No 10mg Take 10 mg Univers m oxalate 03-31-20 by mouth. ity of 10 mg 00:00: [...] by ity of tablet 00:00: mouth 2 [place] 00 (two) Medical times Branch daily with [...] (two) Medical times Branch daily with meals. pioglitazon 2020-0 202- No 15mg Take 15 mg Univers e 15 mg 5-16 05-17 by mouth. ity of tablet 00:00: 04:59 [place] 00 :00 Medical Branch pioglitazon 2020-0 2021- No 15mg Take 15 mg Univers e 15 mg 5-16 05-17 by mouth. ity of tablet 00:00: 04:59 [place] 00 :00 Medical Branch pioglitazon 2020-0 2- No 15mg Take 15 mg Univers e 15 mg 5-16 05-17 by mouth. ity of tablet 00:00: 04:59 [place] 00 :00 Medical Branch pioglitazon 2020-0 2- No 15mg Take 15 mg Univers e 15 mg 5-16 05-17 by mouth. ity of tablet 00:00: 04:59 [place] 00 :00 Medical Branch doxazosin 4 2020-0 2021- No 4mg Take 4 mg Univers mg tablet 07-17-08 by mouth. ity of 00:00: 04:59 [place] 00 :00 Medical Branch doxazosin 4 2020-0 2- No 4mg Take 4 mg Univers mg tablet 07-17-08 by mouth. ity of 00:00: 04:59 [place] 00 :00 Medical Branch doxazosin 4 2020-0 2- No 4mg Take 4 mg Univers mg tablet 07-17-08 by mouth. ity of 00:00: 04:59 [place] 00 :00 Medical Branch doxazosin 4 2020-0 2- No 4mg Take 4 mg Univers mg tablet 07-17 by mouth. ity of 00:00: 04:59 [place] 00 :00 Medical Branch doxazosin 4 2020-0 2- No 4mg Take 4 mg Univers mg tablet 07-17 by mouth. ity of 00:00: 04:59 [place] 00 :00 Medical Branch doxazosin 4 2020-0 2- No 4mg Take 4 mg Univers mg tablet 07-17 by mouth. ity of 00:00: 04:59 [place] 00 :00 Medical Branch lactulose 2020-0 Yes 30mL Take 30 mL Un charline 10 gram/15 4-02 by mouth. ity of mL solution 00:00: [place] 00 Medical Branch lactulose 2020-0 Yes 30mL Take 30 mL Un charline 10 gram/15 4-02 by mouth. ity of mL solution 00:00: [place] 00 Medical Branch lactulose 2020-0 Yes 30mL Take 30 mL Un charline 10 gram/15 4-02 by mouth. ity of mL solution 00:00: [place] 00 Medical Branch lactulose 2020-0 Yes 30mL Take 30 mL Un charline 10 gram/15 4-02 by mouth. ity of mL solution 00:00: [place] 00 Medical Branch lactulose 2020-0 Yes 30mL Take 30 mL Un charline 10 gram/15 4-02 by mouth. ity of mL solution 00:00: [place] 00 Medical Branch lactulose 2020-0 Yes 30mL Take 30 mL Un charline 10 gram/15 4-02 by mouth. ity of mL solution 00:00: [place] 00 Medical Branch losartan 50 1-0 2- No 50mg Take 50 mg Univers mg tablet 06-12 by mouth. ity of 00:00: 04:59 [place] 00 :00 Medical Branch metoprolol 2021-0 2- No 25mg Take 25 mg Univers succinate 06-12 by mouth. ity of XL 25 mg 24 00:00: 04:59 [place] hr tablet 00 :00 Medical Branch losartan 50 2020-0 2- No 50mg Take 50 mg Univers mg tablet 06-12 by mouth. ity of 00:00: 04:59 [place] 00 :00 Medical Branch metoprolol 2020-0 2021- No 25mg Take 25 mg Univers succinate 06-12 by mouth. ity of XL 25 mg 24 00:00: 04:59 [place] hr tablet 00 :00 Medical Branch losartan 50 2020-0 2- No 50mg Take 50 mg Univers mg tablet 06-12 by mouth. ity of 00:00: 04:59 [place] 00 :00 Medical Branch metoprolol 2020-0 2021- No 25mg Take 25 mg Univers succinate 06-12 by mouth. ity of XL 25 mg 24 00:00: 04:59 [place] hr tablet 00 :00 Medical Branch losartan 50 2020-0 2021- No 50mg Take 50 mg Univers mg tablet 06-12 by mouth. ity of 00:00: 04:59 [place] 00 :00 Medical Branch metoprolol 2020-0 2021- No 25mg Take 25 mg Univers succinate 06-12 by mouth. ity of XL 25 mg 24 00:00: 04:59 [place] hr tablet 00 :00 Medical Branch losartan 50 2020-0 2021- No 50mg Take 50 mg Univers mg tablet 06-12 by mouth. ity of 00:00: 04:59 [place] 00 :00 Medical Branch metoprolol 2020-0 2021- No 25mg Take 25 mg Univers succinate 06-12 by mouth. ity of XL 25 mg 24 00:00: 04:59 [place] hr tablet 00 :00 Medical Branch losartan 50 2020-0 2- No 50mg Take 50 mg Univers mg tablet 06-12 by mouth. ity of 00:00: 04:59 [place] 00 :00 Medical Branch metoprolol 2020-0 2021- No 25mg Take 25 mg Univers succinate 06-12 by mouth. ity of XL 25 mg 24 00:00: 04:59 [place] hr tablet 00 :00 Medical [place] Vital Signs Vital Name Observation Time Observation Value Comments Source Systolic blood 2021-04-30 15:55:00 148 mm[Hg] Univer sity of pressure [facility] Diastolic blood 2021-04-30 15:55:00 66 mm[Hg] Unive rsity of pressure [facility] Heart rate 2021-04-30 15:55:00 50 /min Universi ty of [place] [facility] Respiratory rate 2021-04-30 15:55:00 20 /min Univ ersity of [place] [facility] Oxygen saturation in 2021-04-30 15:55:00 99 /min University of Arterial blood by [facility] Pulse oximetry Branch Body temperature 2021-04-30 15:30:00 36.17 Rhoda Univ ersity of [place] [facility] Body height 2021-04-26 17:26:00 182.9 cm Universi ty of [place] [facility] Body weight 2021-04-26 17:26:00 123.8 kg Universi ty of [place] [facility] BMI 2021-04-26 17:26:00 37.01 kg/m2 Universi ty of [place] [facility] Systolic blood 2021-04-30 15:55:00 148 mm[Hg] Univer sity of pressure [place] [facility] Diastolic blood 2021-04-30 15:55:00 66 mm[Hg] Unive rsity of pressure [place] [facility] Heart rate 2021-04-30 15:55:00 50 /min Universi ty of [place] [facility] Respiratory rate 2021-04-30 15:55:00 20 /min Univ ersity of [place] [facility] Oxygen saturation in 2021-04-30 15:55:00 99 /min University of Arterial blood by [facility] Pulse oximetry Branch Body temperature 2021-04-30 15:30:00 36.17 Rhoda Univ ersity of [place] [facility] Body height 2021-04-26 17:26:00 182.9 cm Universi ty [facility] [place] [facility] Body weight 2021-04-26 17:26:00 123.8 kg Universi ty [facility] [place] [facility] BMI 2021-04-26 17:26:00 37.01 kg/m2 Universi ty [facility] [place] [facility] Systolic blood 2021-04-22 15:14:00 142 mm[Hg] Univer sity of pressure [place] [facility] Diastolic blood 2021-04-22 15:14:00 64 mm[Hg] Unive rsity of pressure [place] [facility] Heart rate 2021-04-22 15:14:00 77 /min Universi ty [facility] [place] [facility] Body temperature 2021-04-22 15:14:00 35.89 Rhoda Univ ersity [facility] [place] [facility] Respiratory rate 2021-04-22 15:14:00 16 /min [facility] Body weight 2021-04-22 15:14:00 123.832 kg [facility] BMI 2021-04-22 15:14:00 37.03 kg/m2 [facility] Oxygen saturation in 2021-04-22 15:14:00 94 /min University Arterial blood by [facility] Pulse oximetry Branch Procedures Procedure Date / Time Performing Clinician Source Performed CIRCUMCISION 2021-04-30 14:11:00 [facility] POCT GLUCOSE 2021-04-30 13:17:00 [facility] (AUTOMATED) [facility] POCT GLUCOSE 2021-04-30 13:17:00 [facility] (AUTOMATED) [facility] DAY SURGERY - ADC 2021-04-30 06:01:00 Doctor Unassigned, No [facility] 2021-04-28 14:03:44 Doctor Unassigned, No [facility] [place] DIAGNOSIS AND TREATMENT Name Medical Branch CONSENT/REFUSAL FOR 2021-04-28 14:03:44 Doctor Unassigned, No [facility] [place] DIAGNOSIS AND TREATMENT Name Medical Branch ASSIGNMENT OF BENEFITS 2021-04-28 14:03:29 Doctor Unassigned, No [facility] ASSIGNMENT OF BENEFITS 2021-04-28 14:03:29 Doctor Unassigned, No [facility] NOTICE OF PRIVACY 2021-04-28 14:03:12 [facility]assigned, No [facility] [place] NOTICE OF PRIVACY 2021-04-28 14:03:12 Doctor Unassigned, No [facility] CONSENT/REFUSAL FOR 2021-04-28 14:02:57 Doctor Unassigned, No [facility] [place] DIAGNOSIS AND TREATMENT Name Medical Branch CONSENT/REFUSAL FOR 2021-04-28 14:02:57 Doctor Unassigned, No [facility] [place] DIAGNOSIS AND TREATMENT Name Medical Branch ASSIGNMENT OF BENEFITS 2021-04-28 14:02:43 Doctor Unassigned, No [facility] Medical [place] ASSIGNMENT OF BENEFITS 2021-04-28 14:02:43 Doctor Unassigned, No [facility] POCT URINALYSIS AUTO 2021-04-22 15:22:00 Carlo Garcia Univers ity of [facility] DISCLOSURE AND CONSENT, 2021-04-22 06:01:00 Doctor Unassigned, N o [facility] MEDICAL AND SURGICAL Name [facility] PROCEDURES DISCLOSURE AND CONSENT, 2021-04-22 06:01:00 Doctor Unassigned, N o [facility] MEDICAL AND SURGICAL Name [facility] PROCEDURES Encounters Start End Encounter Admission Attending Care Care Encounter Source Date/Time Date/Time Type Type Clinicians Facility Department ID 2021-05-17 2021-05-17 Telephone [facility] [id number] Univers 00:00:00 00:00:00 Carlo [place] [id number] i ty of [place] 4[place]2.7.2.686 [place] PROFESS[place] [id number] Ut dical NAL [address] [facility] 2021-04-30 2021-04-30 Surgery [facility] [id number] Univers 09:02:00 10:48:00 Carlo [place] [id number] i ty [facility] 4.2.[place].2.[place] SURGICAL [id number] [facility] [address] [place] 2021-04-30 2021-04-30 Outpatient R GERALD [facility] SUU [id number] Univers 07:01:00 10:17:00 CARLO ity [facility] 2021-04-30 2021-04-30 [facility] [id number] Univers 07:01:00 10:17:00 Encounter Carlo [place] [id number] ity [facility] 4[place]2.[place].2.[place] SUR[place]ICAL [id number] [facility] [address] [place] 2021-04-30 2021-04-30 Orders Doctor GOSS [id number] Univers 00:00:00 00:00:00 Only Unassigned, OUSMAN[place] [id number] ity of [facility] 4.2.7.2.686 Reynaldo as [id number] [address] 2021-04-28 2021-04-28 Laboratory Only, Adc Test [facility] [id number] Univers 08:30:00 08:45:00 Only Carlo [place] [id number] ity [facility] [id number] [facility] [id number] [address] 2021-04-28 2021-04-28 Outpatient R ZENY [facility] [id number] Univers 08:30:00 08:30:00 [facility] 2021-04-22 2021-04-22 Office Zeny [facility] [id number] Univers 09:00:00 10:06:36 Visit Carlo MULL[place] [id number] i ty [facility] [id number] [facility] [id number] Ut dical [facility] [address] [facility] [facility] Results Test Description Test Time Test Comments Results Result Comments Source POCT GLUCOSE (AUTOMATED) 2021-04-30 13:20:52 Test Item Value Reference Range Interpretation Comme nts POCT GLU (test code = 3619376286) 144 mg/dL 70-110 H Lab Interpretation (test code = 66192-9) Abnormal [facility] GLUCOSE (AUTOMATED)2021-04-30 13:20:52 Test Item Value Reference Range Interpretation Comments POCT GLU (test code = 5169279713) 144 mg/dL 70-110 H Lab Interpretation (test code = Abnormal 35584-7) [facility] URINALYSIS, [id number] 15:22:00 Test Item Value Reference Range Interpretation Comments POCT U SP GRAV (test code = 1.020 mg/dl 1.005-1.025 3255) POCT PH U (test code = 3254) 5.0 mg/dl 5-8 POCT U LEUK EST (test code = Negative Negative - Negative 3263) POCT U NIT (test code = 3262) Negative Negative - Negative POCT U PROT (test code = Negative - Negative 3259) POCT U GLU (test code = 3256) Negative Negative - Negative POCT U KETONE (test code = Negative Negative - Negative 3258) POCT U UROBILI (test code = 0.2 mg/dl 0.2-1 3260) POCT U BILI (test code = Negative Negative - Negative 3261) POCT U BLD (test code = 3257) Negative Negative - Negative POCT U COLOR (test code = Yellow 3266) POCT U APPEAR (test code = Clear 3267) Lab Interpretation (test code Abnormal = 92279-6) [facility]
[2021-05-19] MEDS ORDERED: METHYLPREDNISOLONE 125 MG INJ ONE (20:37)
[2021-05-19] MEDS ORDERED: DIPHENHYDRAMINE 25 MG TAB/CAP ONE (20:38)
--- NOTE | 2021-05-19 21:50 | ER ---
Nurse's Notes [facility] Name: Torsten Cochran Age: 70 yrs Sex: Male : 1950 Arrival Date: 05/19/2021 Time: 19:30 Bed 14 Private MD: Diagnosis: Insect bite (nonvenomous) of hand-right Presentation: 05/19 19:34 Chief complaint: Patient states: "I think I got bit by a brown recluse spider, I just ab2 know my hand hurts." Pt c/o right hand pain. Coronavirus screen: Vaccine status: Patient reports receiving the 2nd dose of the covid vaccine. Client denies travel out of the [place] in the last 14 days. At this time, the client does not indicate any symptoms associated with coronavirus-19. Ebola Screen: Patient negative for fever greater than or equal to 101.5 degrees Fahrenheit, and additional compatible Ebola Virus Disease symptoms Patient denies exposure to infectious person. Patient denies travel to an Ebola-affected area in the 21 days before illness onset. No symptoms or risks identified at this time. Initial Sepsis Screen: Does the patient meet any 2 criteria? No. Patient's initial sepsis screen is negative. Does the patient have a suspected source of infection? No. Patient's initial sepsis screen is negative. Risk Assessment: Do you want to hurt yourself or someone else? Patient reports no desire to harm self or others. Onset of symptoms is unknown. 19:34 Method Of Arrival: Ambulatory ab2 19:34 Acuity: JOSHUA 4 ab2 Historical: - Allergies: 19:37 Codeine; ab2 - Home Meds: 19:40 amlodipine oral [Active]; Aspirin Oral [Active]; atorvastatin Oral [Active]; doxazosin ab2 Oral [Active]; escitalopram oxalate Oral [Active]; Hydrochlorothiazide Oral [Active]; losartan Oral [Active]; Metformin Oral [Active]; pioglitazone Oral [Active]; - PMHx: 19:37 Anxiety; diabetes mellitus; Hypertensive disorder; Sleep Apnea; ab2 - PSHx: 19:37 Heart Stents; ab2 - Immunization history:: Adult Immunizations up to date. - Social history:: Smoking status: Patient denies any tobacco usage or history of. Screenin:40 Abuse screen: Denies threats or abuse. Denies injuries from another. Nutritional ab2 screening: No deficits noted. Tuberculosis screening: No symptoms or risk factors identified. Fall Risk None identified. Assessment: 19:38 General: Appears in no apparent distress. comfortable, Behavior is calm, cooperative, ab2 appropriate for age. Pain: Complains of pain in right hand Pain currently is 4 out of 10 on a pain scale. 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 Gait is steady, Speech is normal, Facial symmetry appears normal. Cardiovascular: No deficits noted. Denies chest pain, shortness of breath, Heart tones S1 S2 present Patient's skin is warm and dry. Respiratory: Airway is patent Respiratory effort is even, unlabored, Respiratory pattern is regular, symmetrical, Breath sounds are clear bilaterally. GI: No deficits noted. No signs and/or symptoms were reported involving the gastrointestinal system. Abdomen is round non-distended, Bowel sounds present X 4 quads. : No deficits noted. No signs and/or symptoms were reported regarding the genitourinary system. EENT: No deficits noted. No signs and/or symptoms were reported regarding the EENT system. Derm: No deficits noted. No signs and/or symptoms reported regarding the dermatologic system. Skin is intact, is healthy with good turgor, Skin is pink, warm \\T\\ dry. Derm: Reports burning, itching, pain. Musculoskeletal: No deficits noted. No signs and/or symptoms reported regarding the musculoskeletal system. 20:30 Reassessment: Patient is alert, oriented x 3, equal unlabored respirations, skin al4 warm/dry/pink. 21:01 Reassessment: ER PA notified of patients arm hurting. Patient states it feels "sore". al4 Ice pack applied. 21:29 Reassessment: Patient is alert, oriented x 3, equal unlabored respirations, skin al4 warm/dry/pink. Patient states arm is feeling better pain 2/10 described as sore . Vital Signs: 19:34 BP 183 / 83; Pulse 76; Resp 18; Temp 98.1; Pulse Ox 99% on R/A; Weight 121.56 kg; ab2 Height 6 ft. 1 in. (185.42 cm); Pain 4/10; 20:35 BP 138 / 50; Pulse 60; Resp 18 S; Pulse Ox 98% on R/A; al4 21:00 BP 151 / 65; Pulse 64; Resp 18 S; Pulse Ox 98% on R/A; al4 21:45 BP 130 / 46; Pulse 65; Resp 18; Pulse Ox 96% on R/A; Pain 2/10; al4 19:34 Body Mass Index 35.36 (121.56 kg, 185.42 cm) ab2 ED Course: 19:30 Patient arrived in ED. [id number] 19:37 Triage completed. ab2 19:40 Patient has correct armband on for positive identification. Bed in low position. Call ab2 light in reach. Side rails up X2. 19:40 Arm band placed on right wrist. ab2 19:40 No provider procedures requiring assistance completed. ab2 19:44 Abdirahman Armstrong PA is PHCP. cp 19:44 David Weathers MD is Attending Physician. gumaro 20:23 Liborio Rodríguez is Primary Nurse. al4 22:00 Patient did not have IV access during this emergency room visit. al4 Administered Medications: 20:44 Drug: SOLU-Medrol (methylPREDNISolone sodium succinate) 125 mg Route: IM; Site: left al4 deltoid; 21:41 Follow up: Response: No adverse reaction al4 20:44 Drug: Benadryl (diphenhydrAMINE) 50 mg Route: PO; al4 21:41 Follow up: Response: No adverse reaction al4 Outcome: 21:49 Discharge ordered by MD. cp 22:00 Discharged to home ambulatory, with family. al4 22:00 Condition: stable 22:00 Discharge instructions given to patient, family, Instructed on discharge instructions, follow up and referral plans. medication usage, Demonstrated understanding of instructions, follow-up care, medications, Prescriptions given X 1. 22:00 Patient left the ED. al4 Signatures: Abdirahman Armstrong PA PA cp Jeffries, Jennifer jLiborio Parmar al4 Liborio Carey ab2 Corrections: (The following items were deleted from the chart) 19:38 19:37 PMHx: high cholesteral; ab2 ab2 21:30 21:01 Reassessment: ER PA notified of patients arm hurting. Ice pack applied al4 al4 21:42 21:29 Reassessment: Patient states arm is feeling better al4 al4 22:47 21:29 Reassessment: Patient is alert, oriented x 3, equal unlabored respirations, skin al4 warm/dry/pink. Patient states arm is feeling better al4
--- NOTE | 2021-05-19 21:50 | EDPHYS ---
Physician Documentation [facility] Name: Torsten Cochran Age: 70 yrs Sex: Male : 1950 Arrival Date: 05/19/2021 Time: 19:30 Bed 14 Private MD: ED Physician David Weathers HPI: 05/19 20:20 This 70 yrs old Male presents to ER via Ambulatory with complaints of SPIDER cp BITE. 20:20 The patient was bitten on the [place] side of right hand, by a spider, at home. cp 20:20 Onset: The symptoms/episode began/occurred just prior to arrival. Animal information: cp concerned about possible brown recluse. Associated signs and symptoms: Pertinent positives: pain at site, swelling at site, tenderness, itching. Severity of symptoms: in the emergency department the symptoms are unchanged. Historical: - Allergies: 19:37 Codeine; ab2 - Home Meds: 19:40 amlodipine oral [Active]; Aspirin Oral [Active]; atorvastatin Oral [Active]; doxazosin ab2 Oral [Active]; escitalopram oxalate Oral [Active]; Hydrochlorothiazide Oral [Active]; losartan Oral [Active]; Metformin Oral [Active]; pioglitazone Oral [Active]; - PMHx: 19:37 Anxiety; diabetes mellitus; Hypertensive disorder; Sleep Apnea; ab2 - PSHx: 19:37 Heart Stents; ab2 - Immunization history:: Adult Immunizations up to date. - Social history:: Smoking status: Patient denies any tobacco usage or history of. ROS: 20:25 Constitutional: Negative for body aches, chills, fever, poor PO intake. cp 20:25 Cardiovascular: Negative for chest pain, palpitations. cp 20:25 Respiratory: Negative for cough, shortness of breath, wheezing. 20:25 Abdomen/GI: Negative for abdominal pain, nausea, vomiting, and diarrhea. 20:25 Neuro: Negative for altered mental status, headache, weakness. 20:25 All other systems are negative. Exam: 20:27 Constitutional: The patient appears in no acute distress, alert, awake, non-toxic, well cp developed, well nourished, anxious. 20:27 Head/Face: Normocephalic, atraumatic. cp 20:27 Cardiovascular: Rate: normal, Rhythm: regular. 20:27 Respiratory: the patient does not display signs of respiratory distress, Respirations: normal, no use of accessory muscles, no retractions, labored breathing, is not present, Breath sounds: are clear throughout. 20:27 Skin: injury, bite(s), superficial, of the [place] side of right hand, that can be described as without bleeding, very mild erythema and swelling. Vital Signs: 19:34 BP 183 / 83; Pulse 76; Resp 18; Temp 98.1; Pulse Ox 99% on R/A; Weight 121.56 kg; ab2 Height 6 ft. 1 in. (185.42 cm); Pain 4/10; 20:35 BP 138 / 50; Pulse 60; Resp 18 S; Pulse Ox 98% on R/A; al4 21:00 BP 151 / 65; Pulse 64; Resp 18 S; Pulse Ox 98% on R/A; al4 21:45 BP 130 / 46; Pulse 65; Resp 18; Pulse Ox 96% on R/A; Pain 2/10; al4 19:34 Body Mass Index 35.36 (121.56 kg, 185.42 cm) ab2 MDM: 20:10 Patient medically screened. cp 21:00 Differential diagnosis: cellulitis, abscess, necrotizing fasciitis. cp 21:48 Data reviewed: vital signs, nurses notes. cp 21:48 Counseling: I had a detailed discussion with the patient and/or guardian regarding: the cp historical points, exam findings, and any diagnostic results supporting the discharge/admit diagnosis, to return to the emergency department if symptoms worsen or persist or if there are any questions or concerns that arise at home. Response to treatment: the patient's symptoms have mildly improved after treatment, and as a result, I will discharge patient. Administered Medications: 20:44 Drug: SOLU-Medrol (methylPREDNISolone sodium succinate) 125 mg Route: IM; Site: left al4 deltoid; 21:41 Follow up: Response: No adverse reaction al4 20:44 Drug: Benadryl (diphenhydrAMINE) 50 mg Route: PO; al4 21:41 Follow up: Response: No adverse reaction al4 Disposition: 22:51 Co-signature as Attending Physician, David Weathers MD. [email or web address] Disposition Summary: 05/19/21 21:49 Discharge Ordered Location: Home cp Problem: new cp Symptoms: have improved cp Condition: Stable cp Diagnosis - Insect bite (nonvenomous) of hand - right cp Followup: cp - With: Private Physician - When: 1 - 2 days - Reason: Worsening of condition Discharge Instructions: - Discharge Summary Sheet cp - Spider Bite cp Forms: - Medication Reconciliation Form cp - Thank You Letter cp - Antibiotic Education cp - Prescription Opioid Use cp Prescriptions: - Medrol (Horacio) 4 mg Oral Tablets, Dose Pack - take 1 tablet by ORAL route as directed - follow package instructions; 1 cp packet; Refills: 0, Product Selection Permitted Signatures: Abdirahman Armstrong PA PA cp David Weathers MD MD 7 Liborio Rodríguez al4 Liborio Carey ab2 Corrections: (The following items were deleted from the chart) 19:38 19:37 PMHx: high cholesteral; ab2 ab2
[2021-05-19 22:43] VITALS: TEMP 98.1
[2021-05-19 22:47] VITALS: BP 130/46; O2SAT 96
== END 2021-05-19 22:00 | disposition home or self-care (01) ==
LOC: ER 19:27
DX: S60.561A Insect bite (nonvenomous) of right hand, initial encounter (principal); I10 Essential (primary) hypertension; E11.9 Type 2 diabetes mellitus without complications; F41.9 Anxiety disorder, unspecified; Z95.818 Presence of other cardiac implants and grafts; Z88.5 Allergy status to narcotic agent
CPT/HCPCS: 96372; 99283; J2930

== ENCOUNTER 2023-06-05 10:30 | Day surgery (SDC) | payer OTHER ==
[2023-06-02 13:52] LABS: Absolute Eosinophils 0.3 K/uL (0-0.5); Absolute Lymphocytes (CBC) 1.7 K/uL (0.7-4.9); Absolute Monocytes 0.8 K/uL (0.1-1.3); Absolute Neutrophil 5.4 K/uL (1.8-8.0); Basophils % 0.6 % (0-1.3); Eosinophils % 3.8 % (0-4.4); Hemoglobin 13.4 g/dL (13.6-17.9); Lymphocytes % 20.8 % (15.3-44.8); MCH 30.6 pg (27.0-35.0); MCHC 33.4 g/dL (32.0-36.0); MCV 91.7 fL (80-100); MPV 9.5 fL (7.6-11.3); Monocytes % 10.2 % (3.3-12.3); Neutrophils % 64.6 % (41.7-73.7); Nucleated Red Blood Cells % 0.1 % (0-0); Platelets 227 thou/uL (152-406); RBC Red Blood Cell Count 4.37 M/uL (4.33-5.43); Red Cell Distribution Width 15.4 % (12.1-15.2)
[2023-06-02 13:56] LABS: PT Prothrombin Time 11.3 SECONDS (9.5-12.5); PTT, Activated Partial Thromb 30.4 SECONDS (24.3-36.9); Protime INR 1.03
--- NOTE | 2023-06-02 14:08 | RAD REPORT ---
EXAM DESCRIPTION: RAD - Chest Pa And Lat (2 Views) - 06/02/2023 2:01 pm CLINICAL HISTORY: Pre op pending heart catheterization Chest pain. TECHNIQUE: PA and lateral views of the chest were obtained. FINDINGS: The lungs are hyperexpanded compatible with COPD. The heart is upper limit of normal in si ze. No fracture or aggressive bony process. IMPRESSION: COPD without acute process identified. The USPSTF recommends annual screening for lung cancer with low-dose CT (LDCT) in adults aged 50 to 8 0 years who have a 20 pack-year smoking history and currently smoke or have quit within the past 15 y ears.
[2023-06-05] MEDS ORDERED: NA CHLORIDE 0.9% 500 ML ONE (11:19)
[2023-06-05] MEDS ORDERED: LIDOCAINE 1% 20 ML MDV ONE (12:57)
[2023-06-05] MEDS ORDERED: HEPA 1000U/500MLS 2,000 UNIT/1,000 ML BAG IV ONE (12:57)
[2023-06-05] MEDS ORDERED: FENTANYL CITR 100 MCG/2 ML ONE (13:08)
[2023-06-05] MEDS ORDERED: ATROPINE SULF 1 MG/10 ML SYR IV ONE (13:08)
[2023-06-05] MEDS ORDERED: MIDAZOLAM HCL 2 MG/2 ML INJ ONE (13:08)
[2023-06-05] MEDS ORDERED: VERAPAMIL HCL 10 MG/4 ML VIAL IV ONE (13:08)
[2023-06-05] MEDS ORDERED: CLOPIDOGREL 75 MG TABLET ONE (13:09)
[2023-06-05] MEDS ORDERED: ASPIRIN 325 MG TAB ONE (13:09)
[2023-06-05] MEDS ORDERED: HEPARIN 10,000 UNIT/10 ML VIAL IV ONE (13:09)
[2023-06-05] MEDS ORDERED: TICAGRELOR 90 MG TABLET PO ONE (13:09)
[2023-06-05] MEDS ORDERED: HEPARIN 5000 UNIT/ML 1 ML VIAL ONE (13:09)
--- NOTE | 2023-06-05 14:26 | EKG ---
Test Date: 2023-06-02 Test Time: 13:31:19 Construction And Maintenance Inspector: ARSALAN MEASUREMENT RESULTS: Intervals: Rate: 88 KS: 172 QRSD: 86 QT: 356 QTc: 430 [place]: P: 72 KS: 172 QRS: -13 T: 75 INTERPRETIVE STATEMENTS: Sinus rhythm with occasional premature ventricular complexes Otherwise normal ECG Compared to ECG 06/15/2022 02:24:12 Ventricular premature complex(es) now present Sinus bradycardia no longer present T-wave abnormality no longer present Electronically Signed On 06-05-23 14:16:45 CDT by Joe Escalante
[2023-06-05 16:21] VITALS: BP 127/65; O2SAT 97
--- NOTE | 2023-06-05 16:24 | OP ---
Date of Procedure: 06/05/2023 Surgeon: CHANDA MARIE Procedures Performed: 1.Selective coronary angiogram. 2.Left heart catheterization. 3.Right heart catheterization. Indication: Aortic valve stenosis evaluation. Access: 1.Right radial artery 6-Ivorian, closed with TR band. 2.Right IJ 7-Ivorian closed with manual pressure. Complications: None. Bleeding: Less than 50 mL. Anesthesia: Total sedation time was 1 hour. Description Of Procedure: After risks, benefits, and alternatives were explained, the patient agreed to procedure and signed informed consent. The patient was brought into the cardiac catheterization laboratory, prepped and draped in the usual sterile fashion. Then, I accessed right radial artery us ing pediatric micropuncture kit, placed a 6-Ivorian Slender sheath and then accessed right IJ using mi cropuncture kit under ultrasound guidance, and placed a 7-Ivorian [place] sheath and then took a 7-Fr ench balloon-tipped [place] catheter through the IJ access into the right atrium, right ventricle, pulmo nary artery and wedge, obtain waveform and pressure and then thermodilution cardiac output was obtain ed. Subsequently, Grassflat was removed and then I took a 6-Ivorian JL3 catheter, engaged left main, took standard views, and then could not engage the RCA. The jet from aortic valve stenosis kept pushing. Old catheters could not engage the artery safely, so I took a pigtail catheter into the aortic root and did nonselective imaging of the RCA which appeared to be normal and I took AL1 catheter with a st raight wire across the aortic valve and then exchanged for the Lyons double lumen catheter and did simultaneous measurements of pressure in the aorta and the LV and then pullback did not record any i nternal gradient. Then, removed the catheter and the radial sheath and placed TR band with good hemo stasis and removed the venous sheath in the IJ and manual pressure was used for closure with good hem ostasis. Findings: 1.Coronary artery angiogram: a.Left main, large, normal. b.LAD is a large-sized vessel with luminal irregularities proximally and diffuse 20%-30% throughout. Normal diagonal branches. c.Left circumflex is large and codominant and normal. d.RCA; large and codominant, appears normal. 2.The right heart cath numbers: RA pressure was 5, RV pressure was 31/2, mean of 5, PA pressure was 29/11, mean of 15. Paul wedge was 14. LVEDP was 40 mmHg. Cardiac output on average was a 7.52 L /minute and the mean gradient across the aortic valve was 32 mmHg. Aortic valve area was 1.38 cm2. Conclusion: 1.Moderate aortic valve stenosis. 2.Mild coronary artery disease. Plan: Medical management and careful observation of the aortic valve. SR/MODL Voice ID: [id number] Report ID: [id number]
== END 2023-06-05 16:00 | disposition home or self-care (01) ==
LOC: CCL 10:30
PROVIDERS: ATTEND Internal Medicine
DX: I35.0 Nonrheumatic aortic (valve) stenosis (principal); I25.10 Atherosclerotic heart disease of native coronary artery without angina pectoris; I51.7 Cardiomegaly; I10 Essential (primary) hypertension; E78.5 Hyperlipidemia, unspecified; E11.9 Type 2 diabetes mellitus without complications; Z79.82 Long term (current) use of aspirin; Z79.84 Long term (current) use of oral hypoglycemic drugs; Z79.899 Other long term (current) drug therapy; Z88.5 Allergy status to narcotic agent
CPT/HCPCS: 93005; 85025; 80048; 36415; 85610; 82947; 85730; 71046; 93460; 76937; C1893; Q9967; J1644; J2001; J2250; J3010; J7040; 99152; 99153; J0461